=== PATIENT | female | born 1965 | race Caucasian/White ===

== ENCOUNTER 2016-07-23 10:13 | Observation (INO) | payer OTHER ==
[~2016-07-23] VITALS: Ht 165.1 cm; Wt 110.3 kg
[2016-07-23 11:28] VITALS: BP 128/63; PULSE 81; TEMP 36.9; O2SAT 95; BMI 41.0
--- NOTE | 2016-07-23 11:42 | History & Physical Bridge Note ---
H&P Re-Evaluation Bridge Note: I have examined the patient, reviewed the History & Physical and in the interval since the performance of the History & Physical I have noted the following changes of clinical significance: No changes noted
--- NOTE | 2016-07-23 11:43 | Procedure Note ---
Pre-Mod Sedation Assessment General Date of Moderate Sedation: Jul 23, 2016. Vital Signs: Vital Signs Past 12 Hours Date Time Temp Pulse Resp B/P Pulse Ox O2 Delivery O2 Flow Rate FiO2 07/23/16 11:28 36.9 81 16 128/63 95 Room Air Review Cardiovascular: regular rate, rhythm Abdomen: soft Lungs: lungs clear Airway Class: II Pre-Sedation Airway Assessment Oral Cavity: WNL Short Thick Neck: Yes Hx of Sleep Apnea: No Smoking Status: Former Smoker Mallampati Classification: Class II ASA Classification: Class II Procedure Planning Contraindications-for Mod Sed: None Yes Notes The planned sedation has been discussed with the patient and consent obtained. I have identified the patient, determined the appropriateness of sedation and have assessed the patient immediately prior to the procedure. All medicine(s) and interventions are by my order.
[2016-07-23] MEDS ORDERED: COEN1CAP28 PO (12:01)
[2016-07-23] MEDS ORDERED: GARL1TAB8 PO (12:01)
[2016-07-23] MEDS ORDERED: DIPH-437 PO (12:01)
[2016-07-23] MEDS ORDERED: SIMV40TA2 PO (12:01)
[2016-07-23] MEDS ORDERED: SPIR25TA PO (12:01)
[2016-07-23] MEDS ORDERED: INSU100I2 (12:01)
[2016-07-23] MEDS ORDERED: HYDR1SUS2 PO (12:01)
[2016-07-23] MEDS ORDERED: BUSP5TAB59 PO (12:01)
[2016-07-23] MEDS ORDERED: MECL-91 PO (12:01)
[2016-07-23] MEDS ORDERED: LORA-741 PO (12:01)
[2016-07-23] MEDS ORDERED: CLOP1TAB15 PO (12:01)
[2016-07-23] MEDS ORDERED: METO50TA7 PO (12:01)
[2016-07-23] MEDS ORDERED: METF-841 PO (12:01)
[2016-07-23] MEDS ORDERED: INSHNI SQ (12:01)
[2016-07-23] MEDS ORDERED: LISI10TA PO (12:01)
[2016-07-23] MEDS ORDERED: INSDGI SC (12:01)
[2016-07-23] MEDS ORDERED: OMEG10007 PO (12:01)
[2016-07-23] MEDS ORDERED: ASPI81TA28 PO (12:01)
[2016-07-23] MEDS ORDERED: CHOL20007 PO (12:01)
[2016-07-23] MEDS ORDERED: FENTANYL CITRATE INJ 50 MCG/1 ML 2 ML VIAL ONE ×7 (12:26→15:54)
[2016-07-23] MEDS ORDERED: MIDAZOLAM HCL 5 MG/ML 1 ML VIAL ONE ×5 (12:26→15:11)
[2016-07-23] MEDS ORDERED: ADENOSINE IV SOLN 3 MG/ML 2 ML VIAL ONE ×2 (13:50→13:53)
[2016-07-23] MEDS ORDERED: ISOPROTERENOL 200 MCG / 50ML D5W IV ONE (15:20)
[2016-07-23] MEDS ORDERED: MIDAZOLAM HCL 1 MG/ML 2ML VIAL ONE (15:54)
--- NOTE | 2016-07-23 16:03 | Procedure Note ---
Post-Mod Sedation Assessment General Date of Moderate Sedation Jul 23, 2016. Vital Signs: Vital Signs Past 12 Hours Date Time Temp Pulse Resp B/P Pulse Ox O2 Delivery O2 Flow Rate FiO2 07/23/16 11:28 36.9 81 16 128/63 95 Room Air Review - Discharge Criteria Vital Signs Stable: Yes Alert/Oriented/Conversant: Yes Returned to Baseline Mental St: Yes Nausea Absent/Minimal: Yes Pain/Discomfort/Absent/Minimal: Yes Normal/Baseline Respirations: Yes Active Bleeding?: No Pt Received D/C Instructions: N/A Prescriptions Given: None Specific Proced. D/C Criteria Distal Pulses Present (Cardiac: Yes Groin site assessed-Card Cath: Yes Voided Prior To Discharge: Yes Discharged Patients Adult Escort/Transportation: N/A
--- NOTE | 2016-07-23 16:05 | [facility] Post Operative Brief Note ---
Immediate Operative Summary Operative Date Jul 23, 2016. Pre-Operative Diagnosis SVT Post-Operative Diagnosis avnrt Procedure(s) Performed eps, 3d mapping his bundle and c/s os; slow pathyway modification; isoprel infusion Surgeon debbie wilson Resolute Professional Surgeon(s) none Estimated Blood Loss <5cc Findings see official report Fluids (cc crystalloids) 300cc Specimens none Drains none Anesthesia 27mg versed and 650mcg fentantyl Complication(s) None Disposition PCU
--- NOTE | 2016-07-23 16:07 | Discharge Instructions ---
Discharge Instructions Date of Service Jul 23, 2016. Admission Reason for Admission: Svt,I47.1 Discharge Discharge Diagnosis / Problem: avnrt Discharge Goals Goal(s): Improve function Activity Recommendations Activity Limitations: as noted below Lifting Limitations: no more than 10 pounds (for 1 month) . Instructions / Follow-Up Instructions / Follow-Up ACTIVITY RECOMMENDATIONS: It is common to feel weak and fatigue for a few days. * Do not drive or operate any motorized equipment for the next 1 day. * Limit stair usage (2 or 3 trips a day only) for the next three days. * Do not lift anything heavier than 10 pounds for the next 7 days. * Do not engage in vigorous exercise or any sports for the next five days. * You may shower the day after your procedure, but do not immerse the area for three days. Cleanse the site gently with soap and water. SPECIAL CARE INSTRUCTIONS: * You may replace the pressure dressing or band-aid the morning after the procedure. * After your procedure, it is normal to have a small bruise or small lump at the site. Examine your site daily for any change in the bruise or lump, redness, swelling, drainage or numbness. Notify your doctor if any change. BLEEDING: * If there is a small amount of bleeding at the site, lie down and apply firm pressure with a clean cloth for ten minutes. When the bleeding stops, lie quietly keeping the procedure limb straight for six hours. Notify your doctor as soon as possible. * If the bleeding does not stop after ten minutes or if there is a large amount of bleeding or spurting, call 911 immediately. Continue to lie down and hold firm pressure until help arrives. SKIN IRRITATION: * You may experience some redness and/or swelling in the area where radiation was administered. If any skin irritation occurs, please contact your family physician. FOLLOW UP VISIT: Keep any scheduled doctor appointments. Current Hospital Diet Patient's current hospital diet: Discharge Diet Recommended Diet: AHA Diet (Heart Healthy) Procedures Procedures Performed: eps, 3d mapping his bundle and c/s os; slow pathyway modification; isoprel infusion Pending Studies Studies pending at discharge: no Medical Emergencies . Who to Call and When: Medical Emergencies: If at any time you feel your situation is an emergency, please call 911 immediately. . Non-Emergent Contact Non-Emergency issues call your: Filter Helper . . "Provider Documentation" section prepared by Mariah Dueñas. VTE Core Measure Inpt VTE Proph given/why not?: Treatment not indicated
--- NOTE | 2016-07-23 16:11 | Discharge Summary ---
Discharge Summary Date of Service Jul 23, 2016. Discharge Summary Admission Date: 07/23/2016 Discharge Date: Jul 24, 2016 Discharge Disposition: Home Principal Diagnosis: avnrt Secondary Diagnoses/Problems: htn h/o TIA 04/2015 Carotid artery disease (50% right internal carotid artery and 50-69% left internal carotid artery) DM HLD Hypothyroidism Procedures: EPS, 3d mapping of his bundle, slow pathyway modification; isoprel infusion Medication Reconciliation Continued Medications: Acetaminophen/Diphenhydramine (Tylenol Pm) 500 Mg/25 Mg Tab 1 TAB PO HS, TAB Aspirin (Aspirin Ec) 81 Mg Tab 81 MG PO DAILY Buspirone Hcl (Buspirone Hcl) 5 Mg Tab 1 TAB PO BID for 30 Days, #60 TAB 2 Refills Chlorphenir/Hydrocod Polistir (Tussionex) Liqcr 5 ML PO BID PRN for Cough for 10 Days, #100 ML Cholecalciferol (Vitamin D3) 2,000 Unit Tab 1 TAB PO DAILY for 30 Days, #30 TAB 5 Refills Clopidogrel (Plavix) 75 Mg Tab 75 MG PO DAILY, TAB Coenzyme Q10 (Ubidecarenone) (Co Q10) 50 Mg Cap 2 CAP PO DAILY, CAP Fish Oil ([place]-3) 1 Ea Cap 1 CAP PO DAILY, CAP Garlic (Garlic) 200 Mg Tab 100 MG PO DAILY Insulin Glargine (Lantus) 100 Unit/Ml Inj 60 UNITS SC DAILY, VIAL Insulin Human NPH (Humulin N) 100 Units/Ml Susp 15 UNITS SQ PM Insulin Lispro (Human) (Humalog Kwikpen) 100 Unit/Ml Inj for USE DIRECTED Lisinopril (Prinivil) 10 Mg Tab 10 MG PO DAILY, TAB Lorazepam (Ativan) 0.5 Mg Tab 0.5 MG PO Q8H, TAB Meclizine HCl (Meclizine 25) 25 Mg Tab 1 TAB PO DAILY Metformin HCl (Metformin HCl ER) 1,000 Mg Tab 1 TAB PO BID Metoprolol Succ (Toprol Xl) (Toprol-Xl) 50 Mg Tabcr 1 TAB PO DAILY for 30 Days, #30 TAB 5 Refills Simvastatin (Zocor) 40 Mg Tab 40 MG PO QPM, TAB Spironolactone (Aldactone) 25 Mg Tab 50 MG PO BID, TAB Admission Information Physical Exam (per Admitting): aaox3, nad supple no JVD nrl S1/S2, no murmur cta b/l no w/r/r soft nt/nd no edema b/l LE Hospital Course Pt admitted for elective EPS with possible ablation. She underwent procedure without any complications; had AVNRT slow pathway modification. Monitored overnight and discharged home following day Total time spent on discharge = This includes examination of the patient, discharge planning, medication reconciliation, and communication with other providers. Discharge Instructions ACTIVITY RECOMMENDATIONS: It is common to feel weak and fatigue for a few days. * Do not drive or operate any motorized equipment for the next day. * Limit stair usage (2 or 3 trips a day only) for the next three days. * Do not lift anything heavier than 10 pounds for the next 7 days. * Do not engage in vigorous exercise or any sports for the next five days. * You may shower the day after your procedure, but do not immerse the area for three days. Cleanse the site gently with soap and water. SPECIAL CARE INSTRUCTIONS: * You may replace the pressure dressing or band-aid the morning after the procedure. * After your procedure, it is normal to have a small bruise or small lump at the site. Examine your site daily for any change in the bruise or lump, redness, swelling, drainage or numbness. Notify your doctor if any change. BLEEDING: * If there is a small amount of bleeding at the site, lie down and apply firm pressure with a clean cloth for ten minutes. When the bleeding stops, lie quietly keeping the procedure limb straight for six hours. Notify your doctor as soon as possible. * If the bleeding does not stop after ten minutes or if there is a large amount of bleeding or spurting, call 911 immediately. Continue to lie down and hold firm pressure until help arrives. SKIN IRRITATION: * You may experience some redness and/or swelling in the area where radiation was administered. If any skin irritation occurs, please contact your family physician. FOLLOW UP VISIT: Keep any scheduled doctor appointments.
[2016-07-23] MEDS ORDERED: ACETAMINOPHEN 325 MG TAB PO PRN (16:15)
[2016-07-23] MEDS ORDERED: CHLORPH/HYDROCOD EXT REL LIQ 5ML UDP PO PRN (16:15)
[2016-07-23 16:35] VITALS: BP 100/65; PULSE 83; TEMP 37; O2SAT 95; Ht 165.1 cm; Wt 110.3 kg
[2016-07-23] MEDS ORDERED: INSULIN HUMAN NPH SQ SCH (17:00)
[2016-07-23] MEDS ORDERED: DEXTROSE 50% 50 ML SYR IV PRN (17:15)
[2016-07-23] MEDS ORDERED: GLUCAGON FOR INJ 1 MG VIAL SQ PRN (17:15)
[2016-07-23] MEDS ORDERED: GLUCOSE 40% GEL 15 GM TUBE PO PRN (17:15)
[2016-07-23] MEDS ORDERED: GLUCOSE 10 TABS/TUBE PO PRN (17:15)
[2016-07-23] MEDS ORDERED: IV FLUIDS COMPLETED PRN (17:15)
[2016-07-23 17:50] VITALS: BP 112/70; PULSE 85; O2SAT 94
[2016-07-23] MEDS: METFORMIN HCL 500 MG TABCR PO SCH (17:57)
[2016-07-23] MEDS: LORAZEPAM 0.5 MG TAB PO SCH (17:57)
--- NOTE | 2016-07-23 19:04 | OPERATIVE REPORT ---
DATE OF OPERATION: 07/23/2016 PREOPERATIVE DIAGNOSIS: Supraventricular tachycardia. POSTOPERATIVE DIAGNOSIS: Atypical atrioventricular milton reentrant tachycardia. SURGEON: Dr. Mariah Dueñas. DIRECTOR OF PARTNER MARKETING: None. ANESTHESIA: Electrophysiology study, 3D mapping of the His bundle region, and 3D activation mapping of the SVT, slow pathway modification, isuprel infusion. ANESTHESIA: Monitored conscious sedation given total of 27 mg of Versed, 650 mcg of fentanyl. Start time 1328, end time 1600. Administered under my direction via nurse John Kc and Miguel Carbone. IV FLUIDS: 300 mL ADDITIONAL MEDICINES: Adenosine 6 mg. COMPLICATIONS: None. CONDITION: Stable. URINE OUTPUT: Not applicable. SPECIMENS: None. BLOOD LOSS: Less than 5 mL. DRAINS: None. FINDINGS: See below. INDICATIONS: This is a 51-year-old female with a past medical history for hypertension, history of a TIA back in April 2015, carotid artery disease, 50% right internal carotid artery and 50%-69% left internal carotid artery, diabetic on insulin, hyperlipidemia and hypothyroidism. She has been having palpitations and actually was found to have documented SVT with according to the EMS at 161 beats per minute earlier this month. Due to her symptoms and documented SVT she was recommended electrophysiology study with possible ablation. CONSENT: Consent was obtained prior to the patient going to the electrophysiology lab. The patient was informed of risks, benefits, alternatives to the procedure. Risks include but not limited to sudden cardiac , cardiac arrhythmias, cerebrovascular accident, myocardial infarction, injury to the blood vessels, chamber of the heart or the wainwright electrical system where she would need a permanent pacemaker, bleeding and infection. The patient understood these risks and agreed to the procedure as planned. Informed consent was obtained. DESCRIPTION OF THE PROCEDURE: The patient was brought into the electrophysiology lab in a fasting state. She was connected to continuous cardiac monitoring. A time-out was performed to ensure patient's identity and procedure correctly. The patient was prepped and draped over the bilateral groins in a normal surgical standard fashion. Monitored conscious sedation was given throughout the procedure for patient's comfort level. Icard precautions were maintained throughout the procedure. 10 mL of 1% lidocaine were given in the bilateral groins for local anesthesia. Using the modified Seldinger technique, venous access was obtained in the following manner: The left femoral vein had a 6-Cam[place] sheath followed by a [employer] quad diagnostic catheter positioned down to the right ventricular apex. A 7-[place] sheath followed by a [employer] quadripolar catheter that was positioned over the His bundle region. A 7-[place] sheath followed by a [employer] DF curve decapolar coronary sinus catheter positioned down in the coronary sinus. The right femoral vein had a 6-[place] sheath followed by a [employer] diagnostic quad catheter positioned in high rate atrium. Eventually an SRO sheath followed by a 4 mm Biosense DF curve ablation catheter. Electrophysiology study was performed with the following findings: DE interval 400 milliseconds, QRS 70 milliseconds, QT 314 milliseconds, sinus cycle length 756 milliseconds, AH 90 milliseconds, HV 66 milliseconds. With atrial burst pacing the AV Wenckebach was found to be at 300 milliseconds. With burst pacing at 300 milliseconds the tachycardia was induced. Tachycardia cycle length was 454 milliseconds, HV 70 milliseconds, VA time was 130 milliseconds with concentric retrograde atrial activation. With ventricular entrainment and pacing the tachycardia continued when I came off ventricular pacing and there was VAV response with atrial pacing. At 440 milliseconds, I did dissociate the ventricular from the atrium as well as when I paced from the coronary sinus I dissociated the atrium from the ventricle. I was having difficulty breaking the tachycardia, even tried dual high atrial and ventricular pacing at 440 milliseconds, but the tachycardia continued. So, eventually we did give adenosine 6 mg, this broke the tachycardia, looks like there may have been a little escaped beat at the time of break back to sinus rhythm. At that point we then continued with electrophysiology study with atrial extrastimuli from the high right atrium. The AV node ERP was less than or equal to the atrial ERP. The atrial ERP was found to be 600/260 and 400/230. With ventricular extrastimuli, there was VA conduction and the right ventricular ERP was found to be 600/250 and 400/220. Giving atrial extrastimuli double, I did re-induce the tachycardia at 400, 270, 260. Again the tachycardia cycle length was 440, the HV was 72 milliseconds. The VA time was 130 milliseconds. It was at this point where I thought we pretty much probably had an atypical AVNRT, but to be sure we put the mapping ablation catheter in, I mapped with the 3D. We began mapping the arrhythmia with a 3D activation map, pinpointing that the earliest retrograde A was near the slow pathway region on the low right atrial septum. I did at one point bump, and then we got the arrhythmia did break while moving around the catheters, suggested that maybe I did a mechanical bump. It was at that point that then we mapped 3D maps to the His bundle region to perform a nice His bundle cloud and the coronary sinus. Then I positioned the ablation catheter on the low right atrial septum where the slow pathway would be located and gave a series of radiofrequency torres at 35 carrillo, did get some junctional rhythms during some of these torres. After a series of torres we then removed the ablation catheter from the heart and I set up to do a post-ablation electrophysiology study with the following findings: DE interval 174 milliseconds, QRS 68 milliseconds, QT 348 milliseconds. Sinus cycle length 772 milliseconds, GRIER 86 milliseconds, HV 68 milliseconds. Atrial burst pacing, the AV Wenckebach was found to be 340 milliseconds. With atrial extrastimuli, the AV node ERP was less than or equal to the atrial ERP with the atrial ERP being 600/270. With a 400 [address] train atrial extrastimuli at the AV node ERP was found to be 400/290 and an atrial ERP was less than or equal to 400/200. With right ventricular extra stimuli, the right ventricular ERP was 600/240 and 400/210. I gave up to triples from the high right atrium as well as at 600M 400 drive train as well as I burst paced down to 200 from the high right atrium and did not induce any arrhythmias. I then started isuprel 2. Once I had an official significant good isuprel response, I then repeated the electrophysiology study with the following findings: Sinus cycle length 578 milliseconds, GRIER 88 milliseconds, HV 70 milliseconds, AV Wenckebach 290 milliseconds, AV node ERP was less than or equal to the atrial. Atrial ERP was 500/230 and 400/210, right ventricular ERP was less than or equal to 400/200. I did have occasional single echo beats. I gave up to triples from the high rate atrium in addition to burst pacing the high right atrium and did not induce any arrhythmias. We then stopped the isuprel and I continued to see if I could induce any arrhythmias giving up to triples in the high rate atrium during isuprel washout and I could not. All the catheters were removed from the body and using manual compression the sheaths were pulled to establish hemostasis. IMPRESSION: 1. 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 2. Normal atrioventricular milton function. 3. Successful slow pathway modification. PLAN: Monitor patient overnight, 12-lead ECG. She can continue her home medications. No heavy lifting or squatting for a week and she should follow up in my [place] office in 1 month. I attest to the content of the Intraoperative Record and any orders documented therein. Any exceptions are noted below. PEGGY
[2016-07-23 19:51] VITALS: BP 99/62; PULSE 76; TEMP 36.9; O2SAT 95
[2016-07-23 20:00] VITALS: O2SAT 96
[2016-07-23] MEDS: SPIRONOLACTONE 25 MG TAB PO SCH (20:27)
[2016-07-23] MEDS ORDERED: SIMVASTATIN 40 MG TAB PO SCH (21:00)
[2016-07-23] MEDS ORDERED: INSULIN GLARGINE SOLOSTAR 100 UNITS/ML 3 ML PEN SC STA (22:53)
[2016-07-23] MEDS ORDERED: NURSING VERBAL MED ORDER ONE (23:00)
[2016-07-23 23:46] VITALS: BP 106/65; PULSE 63; TEMP 36.5; O2SAT 95
[2016-07-24 04:07] VITALS: BP 96/59; PULSE 63; TEMP 36.6; O2SAT 94
[2016-07-24] MEDS ORDERED: INSULIN ASPART 100 UNITS/ML 3 ML PEN SC SCH (07:00)
[2016-07-24 07:18] VITALS: BP 101/59; PULSE 65; TEMP 36.8; O2SAT 95
[2016-07-24] MEDS: METFORMIN HCL 500 MG TABCR PO SCH (07:41)
[2016-07-24] MEDS: SPIRONOLACTONE 25 MG TAB PO SCH (07:43)
[2016-07-24] MEDS: LORAZEPAM 0.5 MG TAB PO SCH ×2 (08:15)
--- NOTE | 2016-07-24 08:32 | Cardiology Follow-Up ---
Subjective Subjective Date of Service: Jul 24, 2016. Pt evaluation today including: conversation w/ patient, physical exam, lab review Pain: none; some numbness at the left groin and thigh Review of Systems Constitutional: No fatigue, No fever Respiratory: No dyspnea at rest, No dyspnea on exertion, No shortness of breath Cardiac: No chest pain, No edema, No palpitations Abdomen: No nausea, No vomiting Endo: No fatigue Objective Vital Signs Last Vital Signs Documentation Date Time Temp Pulse Resp B/P Pulse Ox O2 Delivery O2 Flow Rate FiO2 07/24/16 07:18 36.8 65 18 101/59 95 Room Air Physical Exam: General Appearance: WD/WN, no apparent distress Eyes: bilateral eyes EOMI, bilateral eyes PERRL Neck: supple, no JVD Respiratory/Chest: lungs clear, normal breath sounds Cardiovascular: regular rate, rhythm, no edema, no JVD, no murmur Abdomen: normal bowel sounds (b/l groins soft and no hematoma), soft Neurologic/Psychiatric: alert, oriented x 3 Skin: normal color, warm/dry Assessment and Plan Impression: 1. Atypical AVNRT s/p slow pathway modification 07/23/2016 2. HTN 3. Carotid artery stenosis 4. DM Plan: -Ok for discharge home from cardiac perspective -Continue home medication -No heavy lifting for 1 week -F/u in my office in 1 month Discharge planning: home Medications: Medications Administered Medications (Trade) Dose Ordered Sig/Rudy Route Start Time Stop Time Status Last Admin Dose Admin Fentanyl Citrate (Fentanyl Inj) 100 mcg STK-MED ONCE .ROUTE 07/23/16 12:26 07/23/16 12:30 DC 07/23/16 12:26 100 MCG Fentanyl Citrate (Fentanyl Inj) 100 mcg STK-MED ONCE .ROUTE 07/23/16 12:57 07/23/16 13:01 DC 07/23/16 12:57 100 MCG Fentanyl Citrate (Fentanyl Inj) 100 mcg STK-MED ONCE .ROUTE 07/23/16 13:22 07/23/16 13:25 DC 07/23/16 13:22 100 MCG Fentanyl Citrate (Fentanyl Inj) 100 mcg STK-MED ONCE .ROUTE 07/23/16 14:08 07/23/16 14:12 DC 07/23/16 14:08 100 MCG Midazolam HCl (Versed Inj) 5 mg STK-MED ONCE .ROUTE 07/23/16 14:32 07/23/16 14:35 DC 07/23/16 14:32 5 MG Fentanyl Citrate (Fentanyl Inj) 100 mcg STK-MED ONCE .ROUTE 07/23/16 14:32 07/23/16 14:35 DC 07/23/16 14:32 100 MCG Midazolam HCl (Versed Inj) 5 mg STK-MED ONCE .ROUTE 07/23/16 15:11 07/23/16 15:14 DC 07/23/16 15:11 5 MG Fentanyl Citrate (Fentanyl Inj) 100 mcg STK-MED ONCE .ROUTE 07/23/16 15:11 07/23/16 15:14 DC 07/23/16 15:11 100 MCG Isoproterenol HCl (Isoproterenol / D5W) 200 mcg STK-MED ONCE IV 07/23/16 15:20 07/23/16 15:23 DC 07/23/16 15:20 200 MCG Fentanyl Citrate (Fentanyl Inj) 100 mcg STK-MED ONCE .ROUTE 07/23/16 15:54 07/23/16 15:57 DC 07/23/16 15:54 50 MCG Midazolam HCl (Versed Inj) 2 mg STK-MED ONCE .ROUTE 07/23/16 15:54 07/23/16 15:57 DC 07/23/16 15:54 2 MG Acetaminophen (Tylenol Tab) 650 mg Q4H PRN PO 07/23/16 16:15 08/22/16 16:14 07/23/16 16:58 650 MG Aspirin (Ecotrin Tab) 81 mg DAILY PO 07/24/16 09:00 08/23/16 08:59 07/24/16 07:43 81 MG Buspirone HCl (Buspar Tab) 5 mg BID PO 07/23/16 21:00 08/22/16 20:59 07/24/16 07:42 5 MG Clopidogrel Bisulfate (plAVix TAB) 75 mg DAILY PO 07/24/16 09:00 08/23/16 08:59 07/24/16 07:42 75 MG Insulin Human NPH (novoLIN-N NPH) 15 units QDD SQ 07/23/16 17:00 08/22/16 16:59 07/23/16 17:56 15 UNITS Insulin Aspart (novoLOG ASPART) 15 units AC SC 07/24/16 07:00 08/23/16 07:59 07/24/16 07:50 15 UNITS Lisinopril (Zestril Tab) 10 mg DAILY PO 07/24/16 09:00 08/23/16 08:59 07/24/16 07:42 10 MG Lorazepam (Ativan Tab) 0.5 mg Q8H PO 07/23/16 16:15 08/22/16 16:14 07/24/16 00:00 0.5 MG Metoprolol Succinate (Toprol Xl Tab) 50 mg DAILY PO 07/24/16 09:00 08/23/16 08:59 07/24/16 07:42 50 MG Simvastatin (Zocor Tab) 40 mg QPM PO 07/23/16 21:00 08/22/16 20:59 07/23/16 20:28 40 MG Spironolactone (Aldactone Tab) 50 mg BID PO 07/23/16 21:00 08/22/16 20:59 07/24/16 07:43 50 MG Metformin HCl (Glucophage Extended Rel Tab) 1,000 mg BIDM PO 07/23/16 17:30 08/22/16 17:29 07/24/16 07:41 1,000 MG Insulin Glargine (Lantus Solostar Pen) 40 unit NOW STAT SC 07/23/16 22:53 07/23/16 22:54 DC 07/23/16 23:59 40 UNIT Lab Results: Telemetry: SR ECG: SR Last 24 Hours Test 07/23/16 16:34 07/23/16 21:09 07/24/16 06:43 Bedside Glucose 156 mg/dl 178 mg/dl 106 mg/dl
[2016-07-24] MEDS ORDERED: METOPROLOL SUCC 50MG EXT REL TAB PO SCH (09:00)
[2016-07-24] MEDS ORDERED: MECLIZINE HCL 25 MG TAB PO SCH (09:00)
[2016-07-24] MEDS ORDERED: ASPIRIN 81 MG ECTAB PO SCH (09:00)
[2016-07-24] MEDS ORDERED: INSULIN GLARGINE SOLOSTAR 100 UNITS/ML 3 ML PEN SC SCH ×2 (09:00→21:00)
[2016-07-24] MEDS ORDERED: CLOPIDOGREL BISULFATE 75 MG TAB PO SCH (09:00)
[2016-07-24] MEDS ORDERED: LISINOPRIL 10 MG TAB PO SCH (09:00)
[2016-07-24 09:43] VITALS: BP 101/59; PULSE 65; TEMP 36.8; O2SAT 95
== END 2016-07-24 11:52 | disposition home or self-care (01) ==
LOC: C.EP 10:13 → C.2T 16:46
PROVIDERS: ADMIT Internal Medicine; ATTEND Internal Medicine
DX: I47.1 Supraventricular tachycardia (principal); E11.9 Type 2 diabetes mellitus without complications; E78.5 Hyperlipidemia, unspecified; E66.01 Morbid (severe) obesity due to excess calories; E03.9 Hypothyroidism, unspecified; I10 Essential (primary) hypertension; I65.23 Occlusion and stenosis of bilateral carotid arteries; Z86.73 Personal history of transient ischemic attack (TIA), and cerebral infarction without residual deficits; Z79.82 Long term (current) use of aspirin; Z79.4 Long term (current) use of insulin; Z87.891 Personal history of nicotine dependence; Z82.49 Family history of ischemic heart disease and other diseases of the circulatory system